=== PATIENT | female | born 1945 | race Caucasian/White ===

== ENCOUNTER → 2022-05-02 | Outpatient (CLI) | payer MEDICARE, OTHER ==
[~2022-05-02] MED LIST: FLUT1BLS IH; HYDR12.516 PO; MOME17N NASAL; MONT-39 PO; OLOP2.5D12 OP; OMEG1CAP12 PO; POTA10CA44 PO; RANI300C PO; UMEC62.5 IH; [UNRECOGNIZED DRUG - CODE] MC; [UNRECOGNIZED DRUG - OTHER] PO
== END | disposition home or self-care (01) ==
LOC: SHCH 09:37
PROVIDERS: ATTEND Internal Medicine Cardiovascular Disease
DX: I25.10 Atherosclerotic heart disease of native coronary artery without angina pectoris (principal); U07.1 COVID-19
CPT/HCPCS: 71046; 93306

== ENCOUNTER → 2023-10-03 | Outpatient (CLI) | payer MEDICARE, OTHER ==
[~2023-10-03] MED LIST changes: -POTA10CA44 PO; +POTA10CA85 PO
== END | disposition home or self-care (01) ==
LOC: SHCH 12:18
PROVIDERS: ATTEND Internal Medicine Cardiovascular Disease
DX: I08.2 Rheumatic disorders of both aortic and tricuspid valves (principal); I25.10 Atherosclerotic heart disease of native coronary artery without angina pectoris
CPT/HCPCS: 93306

== ENCOUNTER → 2024-06-17 | Outpatient (CLI) | payer MEDICARE, OTHER ==
[~2024-06-17] MED LIST changes: -POTA10CA85 PO; +POTA10CA95 PO
--- NOTE | 2024-06-17 13:40 | NUR ---
MBSS COMPLETED (OUTPATIENT). SILENT aspiration during the swallow with thin liquids (from pooled residue in pyriform sinuses) while doing a chin tuck. Recommend regular solids, thin liquids (NO CHIN TUCKS), and pills whole with liquids as tolerated. Compensatory strategies: 1. sit upright during oral intake 2. small bites/sips 3. slow oral intake 4. extra dry swallow 5. NO CHIN TUCKS BEAUTICIAN APPRENTICE reviewed results and recommendations with patient and family present at time of exam. BEAUTICIAN APPRENTICE educated patient on risks and consequences of aspiration. Speech therapy recommended at this time to address mild to moderate pharyngeal dysphagia. All questions answered. Addendum: 06/17/[address] NIDIA TSANG Amended: Links added.
--- NOTE | 2024-06-17 16:02 | HMCIMG ---
MODIFIED BARIUM SWALLOW W CINE REASON: Feeding difficulties, unspecified; Dysphagia, oropharyngeal phase FINDINGS: Fluoroscopic assistance was provided to the speech pathologist while performing examination. For findings and dietary recommendations, refer to speech pathologist's report. Fluoroscopy time: 3.7 minutes. IMPRESSION: Modified barium swallow as described.
== END | disposition home or self-care (01) ==
LOC: RAH 12:52
PROVIDERS: ATTEND Internal Medicine Gastroenterology
DX: R13.13 Dysphagia, pharyngeal phase (principal); R63.30 Feeding difficulties, unspecified
CPT/HCPCS: 74230; 92611